=== PATIENT | male | born 1930 | race Caucasian/White ===

== ENCOUNTER 2016-06-08 05:03 | Day surgery (SDC) | payer MEDICARE, BC ==
[~2016-06-08 05:03] MED LIST: AMLOD-VALSA-HC1 EAC1 PO; ASMANEX0; ASPIR 8181 M1 PO; ASPIR 8181 MG PO; AUGMENTIN 875-1 EAC2 PO; BISOPROLOL FUMA10 MG PO; BISOPROLOL FUMAR5 MG PO; CIPRO500 M2 PO; CLINDAMYCIN HC300 M2 PO; COMBIVENT INH14.7 GM; CPAP; CRESTOR20 M1 PO; CRESTOR20 MG PO; CRESTOR20 MG/TAB PO; DIFLUCAN200 M1 PO; DIFLUCAN200 MG PO; DIOVAN160 M; EXFORGE 5-160 M1 TAB PO; EXFORGE 5-1601 EACH PO; FISH OIL1 CAP PO; HYDROCHLOROTHIA25 M1 PO; IRON PO; L-LYSINE1000 M1 PO; L-LYSINE1000 MG; LEVAQUIN250 M3 PO; LIPITOR40 MG; LOVAZA1 GM PO; MULTIVITAMIN W/1 TA PO; NORCO 5-325 TA1 EACH PO; NORCO 5/325 TAB1 TAB PO; NORVASC10 M2 PO; NORVASC5 MG; PREDNISONE10 M1 PO; TRAMADOL HCL50 M2 PO; TRICOR145 M2 PO; TRICOR145 MG PO; VITAMIN D31000 UNI3 PO; VITAMIN D5000 UNIT PO; WAL-ZYR PO; WAL-ZYR10 M1 PO; WAL-ZYR10 MG PO; ZEBETA10 M1 PO; ZINC50 M; ZOFRAN4 M2 PO; ZYRTEC10 MG
[2016-06-08 06:14] LABS: BASO % 0.7 % (0-2); BASO ABSOLUTE COUNT 0.1 tho/cmm (0.0-0.2); EOS % 5.6 % (0-7); EOSINOPHIL ABSOLUTE COUNT 0.4 tho/cmm (0.0-0.7); HCT-HEMATOCRIT 33.3 % (36.0-53.5); HGB-HEMOGLOBIN 10.7 gm/dl (13.5-17.0); IMMATURE GRANULOCYTES ABSOLUTE 0.02 tho/cmm (0-0.03); IMMATURE GRANULOCYTES PERCENT 0.3 % (0-0.3); LYMPH ABSOLUTE COUNT 1.4 tho/cmm (0.8-4.5); MCH (MEAN CORPUSCULAR HGB) 29.2 pg (28.0-32.0); MCHC MEAN CORPUSCULAR HGB CONC 32.1 % (32.0-36.0); MCV (MEAN CELL VOLUME) 90.7 fl (82.0-96.0); MEAN PLATELET VOLUME 10.5 cmc (9.4-12.4); MONOCYTE ABSOLUTE COUNT 0.8 tho/cmm (0.0-1.2); NEUTROPHIL ABSOLUTE COUNT 4.8 tho/cmm (1.6-8.0); NEUTROPHIL-AUTOMATED 4.8 tho/cmm (1.6-8.0); NEUTROPHILS % 63.4 % (40-80); PLATELET COUNT 250 tho/cmm (150-450); RED BLOOD COUNT 3.67 mil/cmm (4.40-5.70); RED CELL DISTRIBUTION WIDTH 13.9 % (12.4-16.4); WHITE BLOOD COUNT 7.5 tho/cmm (4.0-10.0)
[2016-06-09] MEDS ORDERED: NORCO 5-325 TA1 EACH PO (14:09)
--- NOTE | 2016-06-09 15:11 | NUR ---
VN DISHARGE NOTE-DID TEACHING FOR DISCHARGE AT 1420 WITH PATIENT SITTING UP IN CHAIR. REVIEWED INCISION CARE AND SITE WHERE THE MECHE DRAIN WAS, FOLLOW UP APPTS, ACTIVITY, MEDICATIONS. DID TEACHBACK ON THE ABOVE. PATIENT HAD NO FURTHER QUESTIONS OR CONCERNS AT THIS TIME
[2016-12-24] MEDS ORDERED: VITAMIN D2000 UNIT PO (14:52)
[2016-12-24] MEDS ORDERED: OXYGEN (14:53)
== END 2016-06-09 14:50 | disposition home health service (06) ==
LOC: SRG 05:03 → SHSC 05:04 → ORW 07:46 → PACU 09:50 → 5WD 11:00
PROVIDERS: Surgery
PROC: 0FT44ZZ Resection of Gallbladder, Percutaneous Endoscopic Approach (ICD-10-PCS; principal; 2016-06-08)
DX: K80.10 Calculus of gallbladder with chronic cholecystitis without obstruction (principal); I25.10 Atherosclerotic heart disease of native coronary artery without angina pectoris; I48.91 Unspecified atrial fibrillation; I73.9 Peripheral vascular disease, unspecified; E66.9 Obesity, unspecified; M19.90 Unspecified osteoarthritis, unspecified site; H91.90 Unspecified hearing loss, unspecified ear; G47.30 Sleep apnea, unspecified; I27.2 Other secondary pulmonary hypertension; K21.9 Gastro-esophageal reflux disease without esophagitis; I12.9 Hypertensive chronic kidney disease with stage 1 through stage 4 chronic kidney disease, or unspecified chronic kidney disease; N18.9 Chronic kidney disease, unspecified; J44.9 Chronic obstructive pulmonary disease, unspecified; Z79.82 Long term (current) use of aspirin; Z79.899 Other long term (current) drug therapy; Z87.442 Personal history of urinary calculi; Z87.891 Personal history of nicotine dependence; Z85.51 Personal history of malignant neoplasm of bladder; Z98.890 Other specified postprocedural states
CPT/HCPCS: J0697; J7030

== ENCOUNTER 2016-06-12 17:50 | Inpatient (IN) | payer MEDICARE, BC ==
[2016-06-12 18:28] LABS: BASO % 0.2 % (0-2); EOS % 5.6 % (0-7); EOSINOPHIL ABSOLUTE COUNT 0.5 tho/cmm (0.0-0.7); HCT-HEMATOCRIT 31.1 % (36.0-53.5); HGB-HEMOGLOBIN 10.3 gm/dl (13.5-17.0); IMMATURE GRANULOCYTES ABSOLUTE 0.02 tho/cmm (0-0.03); IMMATURE GRANULOCYTES PERCENT 0.2 % (0-0.3); LYMPH % 10.9 % (20-45); MCH (MEAN CORPUSCULAR HGB) 29.9 pg (28.0-32.0); MCHC MEAN CORPUSCULAR HGB CONC 33.1 % (32.0-36.0); MCV (MEAN CELL VOLUME) 90.1 fl (82.0-96.0); MEAN PLATELET VOLUME 10.4 cmc (9.4-12.4); MONO % 4.8 % (0-12); MONOCYTE ABSOLUTE COUNT 0.4 tho/cmm (0.0-1.2); NEUTROPHILS % 78.3 % (40-80); PLATELET COUNT 243 tho/cmm (150-450); RED BLOOD COUNT 3.45 mil/cmm (4.40-5.70); RED CELL DISTRIBUTION WIDTH 13.8 % (12.4-16.4)
[2016-06-12 18:43] LABS: ALB/GLOB RATIO 0.8 (0.8-2.0); ALBUMIN 3.4 g/dl (3.5-5.0); ALKALINE PHOSPHATASE 173 U/L (33-138); ALT/SGPT 231 U/L (12-78); ANION GAP 16 mmol/L (0-20); AST/SGOT 770 U/L (10-40); BILIRUBIN,TOTAL 1.6 mg/dl (0.0-1.5); BLOOD UREA NITROGEN 40 mg/dl (6-24); CALCIUM 9.4 mg/dl (8.5-10.5); CARBON DIOXIDE-VENOUS 25 mmol/L (22-32); CHLORIDE 102 mmol/l (96-110); CREATININE 2.51 mg/dl (0.60-1.30); GLUCOSE 152 mg/dL (70-110); LIPASE 323 U/L (73-393); POTASSIUM 3.5 mmol/L (3.7-5.1); SODIUM 139 mmol/L (135-145); eGFR VALUE FOR BLACK 26 mL/Min
[2016-06-12 19:08] LABS: URINE BILIRUBIN NEGATIVE (NEG); URINE BLOOD MODERATE (NEG); URINE GLUCOSE (UA) SMALL (NEG); URINE KETONE NEGATIVE (NEG); URINE LEUKOCYTE ESTERASE NEGATIVE (NEG); URINE NITRITE NEGATIVE (NEG); URINE PROTEIN LARGE (NEG)
[2016-06-12 19:09] LABS: URINE APPEARANCE CLEAR; URINE COLOR YELLOW
[2016-06-12 19:36] LABS: URINE WBC 0-3 /[HPF] (0-5)
[2016-06-13 01:26] LABS: PROCALCITONIN 3.91 ng/ml (0.05-0.09)
--- NOTE | 2016-06-13 03:57 | NUR ---
0200 SPOKE WITH [employer] IN PHARMACY TO CLARIFY THE CORRECT DOSE OF ZOYSN FOR THE CURRENT RENAL FUNCTION. STATES OK FOR THE CURRENT DOSE AND WILL MONITOR THE FUTURE LABS AND ADJUST ACCORDINGLY.
[2016-06-13 05:42] LABS: INR 1.2 INR (0.9-1.1); PROTHROMBIN TIME 13.5 SECONDS (9.0-13.6)
[2016-06-13 05:52] LABS: ALB/GLOB RATIO 0.8 (0.8-2.0); ALBUMIN 2.8 g/dl (3.5-5.0); ALKALINE PHOSPHATASE 139 U/L (33-138); ALT/SGPT 171 U/L (12-78); AMYLASE 52 U/L (20-90); AST/SGOT 438 U/L (10-40); BILIRUBIN,DIRECT 2.1 mg/dl (0.0-0.3); BLOOD UREA NITROGEN 41 mg/dl (6-24); CALCIUM 8.9 mg/dl (8.5-10.5); CARBON DIOXIDE-VENOUS 22 mmol/L (22-32); CHLORIDE 105 mmol/l (96-110); CHOLESTEROL 84 mg/dl (120-200); GLUCOSE 105 mg/dL (70-110); HDL CHOLESTEROL 48 mg/dl (40-60); LDL CHOLESTEROL 8 mg/dl (0-99); SODIUM 141 mmol/L (135-145); TRIGLYCERIDES 140 mg/dl (<149); VLDL 28 mg/dl (0-30)
[2016-06-13 05:53] LABS: BASO % 0.1 % (0-2); EOS % 0.1 % (0-7); HCT-HEMATOCRIT 27.5 % (36.0-53.5); HGB-HEMOGLOBIN 9.2 gm/dl (13.5-17.0); IMMATURE GRANULOCYTES ABSOLUTE 0.06 tho/cmm (0-0.03); IMMATURE GRANULOCYTES PERCENT 0.4 % (0-0.3); LYMPH % 2.4 % (20-45); LYMPH ABSOLUTE COUNT 0.3 tho/cmm (0.8-4.5); MCH (MEAN CORPUSCULAR HGB) 29.9 pg (28.0-32.0); MCHC MEAN CORPUSCULAR HGB CONC 33.5 % (32.0-36.0); MCV (MEAN CELL VOLUME) 89.3 fl (82.0-96.0); MEAN PLATELET VOLUME 10.2 cmc (9.4-12.4); MONO % 3.7 % (0-12); MONOCYTE ABSOLUTE COUNT 0.5 tho/cmm (0.0-1.2); NEUTROPHIL ABSOLUTE COUNT 12.6 tho/cmm (1.6-8.0); NEUTROPHIL-AUTOMATED 12.6 tho/cmm (1.6-8.0); NEUTROPHILS % 93.3 % (40-80); PLATELET COUNT 185 tho/cmm (150-450); RED BLOOD COUNT 3.08 mil/cmm (4.40-5.70); RED CELL DISTRIBUTION WIDTH 14.1 % (12.4-16.4); WHITE BLOOD COUNT 13.5 tho/cmm (4.0-10.0)
[2016-06-13 06:12] LABS: ANION GAP 17 mmol/L (0-20); BILIRUBIN,INDIRECT 0.4 mg/dL (0.0-1.0); BILIRUBIN,TOTAL 2.5 mg/dl (0.0-1.5); CREATININE 3.24 mg/dl (0.60-1.30); LIPASE 209 U/L (73-393); eGFR VALUE FOR BLACK 19 mL/Min
[2016-06-13 06:49] LABS: PROCALCITONIN 14.98 ng/ml (0.05-0.09)
[2016-06-14 04:35] LABS: BASO % 0.1 % (0-2); EOS % 0.1 % (0-7); HCT-HEMATOCRIT 24.7 % (36.0-53.5); HGB-HEMOGLOBIN 8.1 gm/dl (13.5-17.0); IMMATURE GRANULOCYTES ABSOLUTE 0.32 tho/cmm (0-0.03); IMMATURE GRANULOCYTES PERCENT 1.8 % (0-0.3); LYMPH % 4.6 % (20-45); LYMPH ABSOLUTE COUNT 0.8 tho/cmm (0.8-4.5); MCH (MEAN CORPUSCULAR HGB) 29.5 pg (28.0-32.0); MCHC MEAN CORPUSCULAR HGB CONC 32.8 % (32.0-36.0); MCV (MEAN CELL VOLUME) 89.8 fl (82.0-96.0); MEAN PLATELET VOLUME 10.9 cmc (9.4-12.4); MONO % 4.6 % (0-12); MONOCYTE ABSOLUTE COUNT 0.8 tho/cmm (0.0-1.2); NEUTROPHIL ABSOLUTE COUNT 15.5 tho/cmm (1.6-8.0); NEUTROPHIL-AUTOMATED 15.5 tho/cmm (1.6-8.0); NEUTROPHILS % 88.8 % (40-80); PLATELET COUNT 150 tho/cmm (150-450); RED BLOOD COUNT 2.75 mil/cmm (4.40-5.70); RED CELL DISTRIBUTION WIDTH 14.9 % (12.4-16.4); WHITE BLOOD COUNT 17.4 tho/cmm (4.0-10.0)
[2016-06-14 05:07] LABS: ALB/GLOB RATIO 0.7 (0.8-2.0); ALBUMIN 2.6 g/dl (3.5-5.0); ALKALINE PHOSPHATASE 99 U/L (33-138); ALT/SGPT 138 U/L (12-78); ANION GAP 15 mmol/L (0-20); AST/SGOT 308 U/L (10-40); BILIRUBIN,DIRECT 1.6 mg/dl (0.0-0.3); BILIRUBIN,INDIRECT 0.4 mg/dL (0.0-1.0); BLOOD UREA NITROGEN 57 mg/dl (6-24); CALCIUM 8.4 mg/dl (8.5-10.5); CARBON DIOXIDE-VENOUS 23 mmol/L (22-32); CHLORIDE 106 mmol/l (96-110); GLUCOSE 155 mg/dL (70-110); MAGNESIUM 1.9 mg/dl (1.3-2.6); POTASSIUM 4.6 mmol/L (3.7-5.1); SODIUM 139 mmol/L (135-145); eGFR VALUE FOR BLACK 13 mL/Min
[2016-06-14 05:23] LABS: CREATININE 4.45 mg/dl (0.60-1.30)
[2016-06-14 14:36] LABS: URINE CREATININE-RANDOM 43 mg/dl (30-125); URINE SODIUM-RANDOM 53 mmol/L (20-110)
[2016-06-15 04:57] LABS: BASO % 0.3 % (0-2); EOS % 6.1 % (0-7); HCT-HEMATOCRIT 25.8 % (36.0-53.5); HGB-HEMOGLOBIN 8.7 gm/dl (13.5-17.0); IMMATURE GRANULOCYTES ABSOLUTE 0.21 tho/cmm (0-0.03); IMMATURE GRANULOCYTES PERCENT 1.3 % (0-0.3); LYMPH % 8.1 % (20-45); LYMPH ABSOLUTE COUNT 1.3 tho/cmm (0.8-4.5); MCH (MEAN CORPUSCULAR HGB) 30.2 pg (28.0-32.0); MCHC MEAN CORPUSCULAR HGB CONC 33.7 % (32.0-36.0); MCV (MEAN CELL VOLUME) 89.6 fl (82.0-96.0); MEAN PLATELET VOLUME 10.8 cmc (9.4-12.4); MONO % 4.7 % (0-12); MONOCYTE ABSOLUTE COUNT 0.7 tho/cmm (0.0-1.2); NEUTROPHIL ABSOLUTE COUNT 12.6 tho/cmm (1.6-8.0); NEUTROPHIL-AUTOMATED 12.6 tho/cmm (1.6-8.0); NEUTROPHILS % 79.5 % (40-80); PLATELET COUNT 163 tho/cmm (150-450); RED BLOOD COUNT 2.88 mil/cmm (4.40-5.70); RED CELL DISTRIBUTION WIDTH 14.8 % (12.4-16.4); WHITE BLOOD COUNT 15.8 tho/cmm (4.0-10.0)
[2016-06-15 05:16] LABS: ALBUMIN 2.3 g/dl (3.5-5.0); ALT/SGPT 93 U/L (12-78); ANION GAP 15 mmol/L (0-20); BILIRUBIN,DIRECT 0.4 mg/dl (0.0-0.3); BLOOD UREA NITROGEN 69 mg/dl (6-24); CALCIUM 8.4 mg/dl (8.5-10.5); CARBON DIOXIDE-VENOUS 22 mmol/L (22-32); CHLORIDE 105 mmol/l (96-110); GLUCOSE 117 mg/dL (70-110); POTASSIUM 4.2 mmol/L (3.7-5.1); SODIUM 138 mmol/L (135-145)
[2016-06-15 05:19] LABS: ALB/GLOB RATIO 0.6 (0.8-2.0); ALKALINE PHOSPHATASE 99 U/L (33-138); AST/SGOT 139 U/L (10-40); BILIRUBIN,INDIRECT 0.3 mg/dL (0.0-1.0); CREATININE 5.18 mg/dl (0.60-1.30); eGFR VALUE FOR BLACK 11 mL/Min
[2016-06-15 05:22] LABS: BILIRUBIN,TOTAL 0.7 mg/dl (0.0-1.5)
[2016-06-16 05:35] LABS: BASO % 0.3 % (0-2); EOS % 9.4 % (0-7); EOSINOPHIL ABSOLUTE COUNT 1.1 tho/cmm (0.0-0.7); HCT-HEMATOCRIT 28.5 % (36.0-53.5); HGB-HEMOGLOBIN 9.5 gm/dl (13.5-17.0); IMMATURE GRANULOCYTES ABSOLUTE 0.11 tho/cmm (0-0.03); LYMPH % 10.6 % (20-45); LYMPH ABSOLUTE COUNT 1.2 tho/cmm (0.8-4.5); MCH (MEAN CORPUSCULAR HGB) 29.6 pg (28.0-32.0); MCHC MEAN CORPUSCULAR HGB CONC 33.3 % (32.0-36.0); MCV (MEAN CELL VOLUME) 88.8 fl (82.0-96.0); MEAN PLATELET VOLUME 11.2 cmc (9.4-12.4); MONO % 7.8 % (0-12); MONOCYTE ABSOLUTE COUNT 0.9 tho/cmm (0.0-1.2); NEUTROPHIL ABSOLUTE COUNT 8.1 tho/cmm (1.6-8.0); NEUTROPHIL-AUTOMATED 8.1 tho/cmm (1.6-8.0); NEUTROPHILS % 70.9 % (40-80); PLATELET COUNT 214 tho/cmm (150-450); RED BLOOD COUNT 3.21 mil/cmm (4.40-5.70); RED CELL DISTRIBUTION WIDTH 14.6 % (12.4-16.4); WHITE BLOOD COUNT 11.5 tho/cmm (4.0-10.0)
[2016-06-16 05:41] LABS: ANION GAP 16 mmol/L (0-20); BLOOD UREA NITROGEN 77 mg/dl (6-24); CALCIUM 9.1 mg/dl (8.5-10.5); CARBON DIOXIDE-VENOUS 24 mmol/L (22-32); CHLORIDE 106 mmol/l (96-110); CREATININE 5.69 mg/dl (0.60-1.30); GLUCOSE 95 mg/dL (70-110); POTASSIUM 4.2 mmol/L (3.7-5.1); SODIUM 142 mmol/L (135-145); eGFR VALUE FOR BLACK 10 mL/Min
[2016-06-16 12:28] LABS: ANION GAP 16 mmol/L (0-20); BLOOD UREA NITROGEN 75 mg/dl (6-24); CALCIUM 9.1 mg/dl (8.5-10.5); CARBON DIOXIDE-VENOUS 24 mmol/L (22-32); CHLORIDE 102 mmol/l (96-110); CREATININE 5.63 mg/dl (0.60-1.30); GLUCOSE 137 mg/dL (70-110); POTASSIUM 4.2 mmol/L (3.7-5.1); SODIUM 138 mmol/L (135-145); eGFR VALUE FOR BLACK 10 mL/Min
[2016-06-17 05:42] LABS: ANION GAP 17 mmol/L (0-20); BLOOD UREA NITROGEN 74 mg/dl (6-24); CALCIUM 8.7 mg/dl (8.5-10.5); CARBON DIOXIDE-VENOUS 24 mmol/L (22-32); CHLORIDE 103 mmol/l (96-110); CREATININE 5.75 mg/dl (0.60-1.30); GLUCOSE 94 mg/dL (70-110); SODIUM 140 mmol/L (135-145); eGFR VALUE FOR BLACK 9 mL/Min
[2016-06-18 06:26] LABS: HGB-HEMOGLOBIN 8.7 gm/dl (13.5-17.0); PLATELET COUNT 201 tho/cmm (150-450)
[2016-06-18 07:08] LABS: ALBUMIN 2.6 g/dl (3.5-5.0); ANION GAP 18 mmol/L (0-20); BLOOD UREA NITROGEN 76 mg/dl (6-24); CALCIUM 8.5 mg/dl (8.5-10.5); CARBON DIOXIDE-VENOUS 21 mmol/L (22-32); CHLORIDE 107 mmol/l (96-110); CREATININE 5.33 mg/dl (0.60-1.30); GLUCOSE 103 mg/dL (70-110); MAGNESIUM 1.7 mg/dl (1.3-2.6); PHOSPHOROUS 5.8 mg/dl (2.5-4.9); SODIUM 142 mmol/L (135-145); eGFR VALUE FOR BLACK 10 mL/Min
[2016-06-18 13:51] LABS: IRON 53 ug/dl (49-181); IRON BINDING CAPACITY 272 ug/dl (250-450)
[2016-06-18 13:55] LABS: TSH-THYROID STIMULATING HORM. 1.89 uIU/ml (0.40-3.80)
[2016-06-19 06:28] LABS: ALBUMIN 2.8 g/dl (3.5-5.0); ANION GAP 15 mmol/L (0-20); BLOOD UREA NITROGEN 72 mg/dl (6-24); CALCIUM 8.4 mg/dl (8.5-10.5); CARBON DIOXIDE-VENOUS 23 mmol/L (22-32); CHLORIDE 108 mmol/l (96-110); GLUCOSE 93 mg/dL (70-110); PHOSPHOROUS 5.9 mg/dl (2.5-4.9); POTASSIUM 4.1 mmol/L (3.7-5.1); SODIUM 142 mmol/L (135-145); eGFR VALUE FOR BLACK 11 mL/Min
[2016-06-19 06:35] LABS: BASO % 0.9 % (0-2); BASO ABSOLUTE COUNT 0.1 tho/cmm (0.0-0.2); EOS % 13.7 % (0-7); EOSINOPHIL ABSOLUTE COUNT 1.1 tho/cmm (0.0-0.7); HCT-HEMATOCRIT 26.5 % (36.0-53.5); HGB-HEMOGLOBIN 8.7 gm/dl (13.5-17.0); IMMATURE GRANULOCYTES ABSOLUTE 0.13 tho/cmm (0-0.03); IMMATURE GRANULOCYTES PERCENT 1.6 % (0-0.3); LYMPH ABSOLUTE COUNT 1.3 tho/cmm (0.8-4.5); MCH (MEAN CORPUSCULAR HGB) 29.3 pg (28.0-32.0); MCHC MEAN CORPUSCULAR HGB CONC 32.8 % (32.0-36.0); MCV (MEAN CELL VOLUME) 89.2 fl (82.0-96.0); MEAN PLATELET VOLUME 10.3 cmc (9.4-12.4); MONO % 12.5 % (0-12); NEUTROPHIL ABSOLUTE COUNT 4.5 tho/cmm (1.6-8.0); NEUTROPHIL-AUTOMATED 4.5 tho/cmm (1.6-8.0); NEUTROPHILS % 55.3 % (40-80); PLATELET COUNT 221 tho/cmm (150-450); RED BLOOD COUNT 2.97 mil/cmm (4.40-5.70); WHITE BLOOD COUNT 8.1 tho/cmm (4.0-10.0)
[2016-06-20 06:27] LABS: HCT-HEMATOCRIT 27.1 % (36.0-53.5); HGB-HEMOGLOBIN 8.8 gm/dl (13.5-17.0)
[2016-06-20 06:37] LABS: ALBUMIN 2.9 g/dl (3.5-5.0); ANION GAP 15 mmol/L (0-20); BLOOD UREA NITROGEN 72 mg/dl (6-24); CALCIUM 8.4 mg/dl (8.5-10.5); CARBON DIOXIDE-VENOUS 23 mmol/L (22-32); CHLORIDE 108 mmol/l (96-110); CREATININE 4.57 mg/dl (0.60-1.30); GLUCOSE 97 mg/dL (70-110); PHOSPHOROUS 5.6 mg/dl (2.5-4.9); POTASSIUM 3.9 mmol/L (3.7-5.1); SODIUM 142 mmol/L (135-145); eGFR VALUE FOR BLACK 12 mL/Min
[2016-06-21 06:15] LABS: ANION GAP 16 mmol/L (0-20); BLOOD UREA NITROGEN 66 mg/dl (6-24); CALCIUM 8.1 mg/dl (8.5-10.5); CARBON DIOXIDE-VENOUS 22 mmol/L (22-32); CHLORIDE 108 mmol/l (96-110); GLUCOSE 100 mg/dL (70-110); POTASSIUM 3.6 mmol/L (3.7-5.1); SODIUM 142 mmol/L (135-145); eGFR VALUE FOR BLACK 14 mL/Min
[2016-06-21] MEDS ORDERED: FEOSOL325 M1 PO (14:07)
[2016-06-21] MEDS ORDERED: LOPRESSOR50 M1 PO (14:07)
[2016-06-21] MEDS ORDERED: NITROSTAT0.4 MG/TAB PO (14:09)
[2016-06-21] MEDS ORDERED: AUGMENTIN 500-1 EAC2 PO (14:10)
[2016-06-21] MEDS ORDERED: STOP HOME MEDICATION (14:16)
[2016-12-24] MEDS ORDERED: VITAMIN D2000 UNIT PO (14:52)
[2016-12-24] MEDS ORDERED: OXYGEN (14:53)
== END 2016-06-21 15:45 | disposition home health service (06) | DRG 862 ==
LOC: EDMED 17:50 → EMR2 20:36 → CAR1 21:50 → CCU 06-13 12:02 → 5WD 06-14 15:50
PROVIDERS: Emergency Medicine; Hospitalist; Internal Medicine; Internal Medicine Nephrology; Physician Assistant Medical; Specialist; ADMIT Internal Medicine
PROC: 5A09557 Assistance with Respiratory Ventilation, Greater than 96 Consecutive Hours, Continuous Positive Airway Pressure (ICD-10-PCS; 2016-06-12)
PROC: 0FC98ZZ Extirpation of Matter from Common Bile Duct, Via Natural or Artificial Opening Endoscopic (ICD-10-PCS; principal; 2016-06-13)
DX: T81.4XXA Infection following a procedure, initial encounter (principal); A41.51 Sepsis due to Escherichia coli [E. coli]; N17.0 Acute kidney failure with tubular necrosis; J96.11 Chronic respiratory failure with hypoxia; I24.8 Other forms of acute ischemic heart disease; N18.4 Chronic kidney disease, stage 4 (severe); K80.30 Calculus of bile duct with cholangitis, unspecified, without obstruction; K91.86 Retained cholelithiasis following cholecystectomy; J44.9 Chronic obstructive pulmonary disease, unspecified; K21.9 Gastro-esophageal reflux disease without esophagitis; Z79.82 Long term (current) use of aspirin; G47.33 Obstructive sleep apnea (adult) (pediatric); Z87.891 Personal history of nicotine dependence; Y83.8 Other surgical procedures as the cause of abnormal reaction of the patient, or of later complication, without mention of misadventure at the time of the procedure; Y92.9 Unspecified place or not applicable; I12.9 Hypertensive chronic kidney disease with stage 1 through stage 4 chronic kidney disease, or unspecified chronic kidney disease; E87.6 Hypokalemia; I35.0 Nonrheumatic aortic (valve) stenosis; R60.9 Edema, unspecified; Z99.81 Dependence on supplemental oxygen; D53.9 Nutritional anemia, unspecified; E78.5 Hyperlipidemia, unspecified; I25.10 Atherosclerotic heart disease of native coronary artery without angina pectoris; Z90.49 Acquired absence of other specified parts of digestive tract
CPT/HCPCS: C1769; C9113; J0360; J0690; J0885; J1650; J2543; J3480; J7030; J7050; P9045; Q9966